=== PATIENT | male | born 1965 | race Caucasian/White ===

== ENCOUNTER 2018-07-11 20:57 | Emergency (ER) | payer OTHER ==
[~2018-07-11] VITALS: Ht 175.3 cm; Wt 88.5 kg
[2018-07-11 21:07] VITALS: BP 137/80
--- NOTE | 2018-07-11 22:57 | NUR ---
PT AMBULATED TO BED 12.
--- NOTE | 2018-07-11 22:58 | NUR ---
52 Y/O M PRESENTED TO ED WITH R TOOTH PAIN. AAOX4. PT STATED THAT PAIN HAS LASTED 2 DAYS AND PUS HAS BEEN PRESENT. HAS NOT SEEN DENTIST SINCE PAIN STATED. PAIN IS 8/10, THROBBING. R JAW TENDER TO TOUCH. ABLE TO OPEN AND CLOSE MOUTH WITH NO DISCOMFORT. BEDRAIL X1 UP FOR SAFETY. NOTIFIED. WILL CONTINUE TO MONITOR. PHM: HTN NKA
[2018-07-12] MEDS ORDERED: AMOXICILLIN 500 MG CAP PO ONE
[2018-07-12] MEDS ORDERED: IBUPROFEN 800 MG TAB PO ONE
[2018-07-12 00:25] VITALS: BP 115/79
--- NOTE | 2018-07-12 00:26 | NUR ---
Patient discharged with v/s stable. Written and verbal after care instructions given and explained. Patient alert, oriented and verbalized understanding of instructions. Ambulatory with steady gait. All questions addressed prior to discharge. ID band removed. Patient advised to follow up with PMD. Rx of amoxicillin and ibuprofen given. Patient educated on indication of medication including possible reaction and side effects. Opportunity to ask questions provided and answered.
== END 2018-07-12 00:26 | disposition home or self-care (01) ==
LOC: MED 20:57
DX: K04.7 Periapical abscess without sinus (principal); K03.81 Cracked tooth; I10 Essential (primary) hypertension; Z88.8 Allergy status to other drugs, medicaments and biological substances
CPT/HCPCS: 99283